=== PATIENT | female | born 1955 | race Caucasian/White ===

== ENCOUNTER 2021-07-04 12:48 | Outpatient (CLI) | payer MEDICARE, OTHER | END 2021-07-04 13:10 | LOC: SLEEP 12:48 | PROVIDERS: ATTEND Family Medicine | DX: G47.33 Obstructive sleep apnea (adult) (pediatric) (principal); I10 Essential (primary) hypertension | CPT/HCPCS: G0399 ==

== ENCOUNTER 2023-04-24 13:45 | Outpatient (CLI) | payer MEDICARE, OTHER | END 2023-04-24 14:05 | LOC: SLEEP 13:45 | PROVIDERS: ATTEND Family Medicine | DX: G47.33 Obstructive sleep apnea (adult) (pediatric) (principal); I10 Essential (primary) hypertension | CPT/HCPCS: G0399 ==